=== PATIENT | male | born 1945 | race Caucasian/White ===

== ENCOUNTER → 2020-10-19 09:50 | Outpatient (CLI) | payer MEDICARE, SELFPAY ==
[2020-10-19 11:00] LABS: COVID19 -Nasal RAPID Negative (Negative)
== END ==
PROVIDERS: PCP Family Medicine; Visit Provider Nurse Practitioner
DX: Z20.822 Contact with and (suspected) exposure to COVID-19 (principal)
CPT/HCPCS: 87635; C9803

== ENCOUNTER 2020-10-22 07:07 | Day surgery (SDC) | payer MEDICARE, SELFPAY ==
[2020-10-22] MEDS: PROPARACAINE 0.5% OPHTH SOL 2 DROPS EYE-OP (07:26)
[2020-10-22 07:27] VITALS: BP 175/107; PULSE 120; RESP 19; TEMP 36.6; O2SAT 99; BMI 27.3
[2020-10-22] MEDS: CATARACT EYE COMPOUND (10 DROPS/SYRINGE) 3 DROPS EYE-OP (07:39)
--- NOTE | 2020-10-22 08:36 | PM.PREOP ---
Pre-operative Note Interval Note History & Physical reviewed/Exam performed by Physician: Yes Changes to H&P: No
--- NOTE | 2020-10-22 08:36 | PM.OP.1 ---
Operative Date/Time/Diagnoses Pre-op diagnosis: Nuclear cataract right eye Procedure & Clinicians Procedure: Cataract Surgery Same procedure as scheduled: Yes Surgeon: Alonzo Best Anesthesia Type: MAC +/- and Sedation Operative Notes Procedure in detail: Patient brought to the operating suite. Tetracaine drops placed in the right eye. Patient was prepped and draped in sterile manner. Wire lid speculum was placed in the eye. Betadine drops were placed on the eye. This was irrigated. Lidocaine jelly was placed on the eye. A paracentesis port was created with a side-port blade. 0.1 mL 1% preservative free lidocaine was injected into the anterior chamber. The anterior chamber was deepened with viscoelastic. 2.6 mm keratome was used to create a temporal clear corneal incision. Cystotome and Utrata forceps were used to create continuous tear capsulorrhexis. Balanced salt solution was used to hydro dissect the nucleus. The phacoemulsification handpiece was inserted and the nucleus was removed using the stop and chop technique. The irrigation aspiration handpiece was inserted and the remaining cortex was removed. Anterior chamber was deepened with viscoelastic. An Perry ZCB00 intraocular lens with a power of 18.0 was injected into the capsular bag. Irrigation aspiration handpiece was inserted and the remaining viscoelastic was removed. Incision was hydrated with balanced salt solution and found to be leak free with pressure with Weck-Sumi sponges. 0.1 mL Vigamox injected anterior chamber. 0.3 mL Kenalog 10 mg was injected subconjunctivally. Lid speculum was removed. The patient left the operating room in excellent condition. Complications: none Post-operative Condition: stable Disposition: same day surgery
[2020-10-22] MEDS: TRIAMCINOLONE 50 MG/5 ML VIAL INJ (08:52)
[2020-10-22] MEDS: LIDOCAINE JELLY 2% 5 ML 1 APPLIC TOP (08:52)
[2020-10-22] MEDS: BALANCED SALT IRRIG SOLN NO.2 500 ML, EPINEPHrine 1 MG IRR (08:53)
[2020-10-22] MEDS: PHENYLEPHRINE/LIDOCAINE VIAL (OR) 0.2 ML EYE-OP (08:53)
[2020-10-22] MEDS: MOXIFLOXACIN INJ 5 MG/ML VIAL EYE-OP (08:53)
[2020-10-22] MEDS: CHONDROIDTIN/SOD HYALURONATE 1.05 ML SYRINGE INTRAOCULA (08:54)
[2020-10-22] MEDS: TETRACAINE 0.5% OPHTH DROPS 4 ML 2 DROPS EYE-OP (08:54)
[2020-10-22 09:10] VITALS: BP 152/93; PULSE 66; RESP 16; TEMP 36.6; O2SAT 97
== END 2020-10-22 09:23 | disposition home or self-care (01) ==
PROVIDERS: PCP Family Medicine; Referring Provider Ophthalmology; Visit Provider Ophthalmology
PROC: (CPT 66984; principal; 2020-10-22 08:45)
DX: H25.11 Age-related nuclear cataract, right eye (principal); R42 Dizziness and giddiness; R03.0 Elevated blood-pressure reading, without diagnosis of hypertension
CPT/HCPCS: 66984; J0171; J2250; J3010; J3301

== ENCOUNTER → 2020-11-02 10:09 | Outpatient (CLI) | payer MEDICARE, SELFPAY ==
[2020-11-02 14:42] LABS: COVID19 -Nasal RAPID Negative (Negative)
== END ==
PROVIDERS: PCP Family Medicine; Visit Provider Physician Assistant
DX: Z20.822 Contact with and (suspected) exposure to COVID-19 (principal)
CPT/HCPCS: 87635; C9803

== ENCOUNTER 2020-11-05 08:02 | Day surgery (SDC) | payer MEDICARE, SELFPAY ==
[2020-11-05 08:38] VITALS: BP 177/89; PULSE 81; RESP 18; TEMP 36.6; O2SAT 99; BMI 26.6
[2020-11-05] MEDS: CATARACT EYE COMPOUND (10 DROPS/SYRINGE) 3 DROPS EYE-OP (08:48)
[2020-11-05] MEDS: PROPARACAINE 0.5% OPHTH SOL 2 DROPS EYE-OP (08:48)
--- NOTE | 2020-11-05 09:25 | P.OP_ITS ---
Operative Date/Time/Diagnoses Pre-op diagnosis: Nuclear Cataract Left eye Post-op diagnosis: same Procedure & Clinicians Same procedure as scheduled: Yes Surgeon: Alonzo Best Anesthesia Type: MAC +/- and Sedation Operative Notes Procedure in detail: Patient brought to the operating suite. Tetracaine drops placed in the left eye. Patient was prepped and draped in sterile manner. Wire lid speculum was placed in the eye. Betadine drops were placed on the eye. This was irrigated. Lidocaine jelly was placed on the eye. A paracentesis port was created with a side-port blade. 0.1 mL 1% preservative free lidocaine was injected into the anterior chamber. The anterior chamber was deepened with viscoelastic. 2.6 mm keratome was used to create a temporal clear corneal incision. Cystotome and Utrata forceps were used to create continuous tear capsulorrhexis. Balanced salt solution was used to hydro dissect the nucleus. The phacoemulsification handpiece was inserted and the nucleus was removed using the stop and chop technique. The irrigation aspiration handpiece was inserted and the remaining cortex was removed. Anterior chamber was deepened with viscoe lastic. An Perry ZCB00 intraocular lens with a power of 19.0 was injected into the capsular bag. Irrigation aspiration handpiece was inserted and the remaining viscoelastic was removed. Incision was hydrated with balanced salt solution and found to be leak free with pressure with Weck-Sumi sponges. 0.1 mL Vigamox injected anterior chamber. 0.3 mL Kenalog 10 mg was injected subconjunctivally. Lid speculum was removed. The patient left the operating room in excellent condition. Complications: none Post-operative Condition: stable Disposition: same day surgery
--- NOTE | 2020-11-05 09:25 | PM.PREOP ---
Pre-operative Note Interval Note History & Physical reviewed/Exam performed by Physician: Yes Changes to H&P: No
[2020-11-05] MEDS: MOXIFLOXACIN INJ 5 MG/ML VIAL EYE-OP (09:34)
[2020-11-05] MEDS: LIDOCAINE JELLY 2% 5 ML 1 APPLIC TOP (09:34)
[2020-11-05] MEDS: BALANCED SALT IRRIG SOLN NO.2 500 ML, EPINEPHrine 1 MG IRR (09:34)
[2020-11-05] MEDS: TETRACAINE 0.5% OPHTH DROPS 4 ML 2 DROPS EYE-OP (09:35)
[2020-11-05] MEDS: CHONDROIDTIN/SOD HYALURONATE 1.05 ML SYRINGE INTRAOCULA (09:35)
[2020-11-05] MEDS: PHENYLEPHRINE/LIDOCAINE VIAL (OR) 0.2 ML EYE-OP (09:35)
[2020-11-05] MEDS: TRIAMCINOLONE 50 MG/5 ML VIAL INJ (09:35)
[2020-11-05 09:55] VITALS: BP 130/80; PULSE 73; RESP 16; TEMP 36.8; O2SAT 98
== END 2020-11-05 10:02 | disposition home or self-care (01) ==
PROVIDERS: PCP Family Medicine; Referring Provider Ophthalmology; Visit Provider Ophthalmology
PROC: (CPT 66984; principal; 2020-11-05 09:45)
DX: H25.12 Age-related nuclear cataract, left eye (principal); R42 Dizziness and giddiness
CPT/HCPCS: 66984; J0171; J2250; J3010; J3301

== ENCOUNTER → 2021-03-27 11:21 | Outpatient (CLI) | payer MEDICARE, SELFPAY ==
[2021-03-27 11:58] LABS: COVID19 -Nasal RAPID Negative (Negative)
== END ==
PROVIDERS: PCP Family Medicine; Visit Provider Physician Assistant
DX: Z20.822 Contact with and (suspected) exposure to COVID-19 (principal)
CPT/HCPCS: 87635

== ENCOUNTER 2022-07-05 09:21 | Emergency (ER) | payer MEDICARE, SELFPAY ==
[2022-07-05] VITALS (7 sets, daily range): BP systolic 135–143; BP diastolic 74–91; PULSE 65–106; RESP 16–19; TEMP 36.9; O2SAT 93–97; BMI 25.8
--- NOTE | 2022-07-05 09:42 | ED.BACK ---
HPI - Back Pain/Injury General Chief Complaint: Back Pain/Injury Stated Complaint: hip and leg pain,difficulty sleeping x7 days Time Seen by Provider: 07/05/22 09:25 History of Present Illness HPI Narrative: 76-year-old male nonsmoker with noncontributory medical history presents with his in the chief complaint of bilateral hip and lower extremity pain over the course of the past week. He denies any trauma or injury. He is had no fever, chills nor nausea or vomiting. He states that he feels pain primarily at night and when he 1st wakes up in both of his hips and it radiates down his anterior lateral thighs even into his legs. He denies any loss of control of bowel or bladder. He denies any lower extremity weakness, numbness or tingling. Denies any heavy lifting, bending twisting or other. He denies obvious provocation or palliation. He states that moving his hips does not seem to make it worse. He states he frequently gets up once or twice in the night to urinate but over the past night or 2 he is done it every hour or so. He was recently seen by his primary care provider because he had been having some fullness in his upper abdomen after eating and there was concern about his pancreas. He reports lab work having been done and is scheduled for a CT on Wednesday as ordered by the [facility]. Fortunately, however he is having very little in the way of abdominal pain at this time and those symptoms seemed to have improved. Related Data Previous Rx's Medication Instructions Recorded amoxicillin 875 mg-potassium 1 tab PO Q12H #20 tabs 07/05/22 clavulanate 125 mg tablet gabapentin 300 mg capsule 300 mg PO BEDTIME #14 caps 07/05/22 hydrocodone 5 mg-acetaminophen 325 1 tab PO Q4-6H PRN pain #10 tabs 07/05/22 mg tablet methylprednisolone 4 mg tablets in See Rx Instructions PO .COMPLEX 07/05/22 a dose pack (Medrol (Zacarias)) #21 ea ondansetron 4 mg disintegrating 4 mg PO TID-QID PRN nausea and 07/05/22 tablet vomiting #10 tabs Allergies Allergy/AdvReac Type Severity Reaction Status Date / Time meperidine Allergy Unknown Nausea Verified 03/27/21 11:26 Review of Systems Review of Systems Narrative: GENERAL: See HPI HEENT: Denies sinus pain, ear pain, sore throat, difficulty swallowing, dizziness. RESPIRATORY: Denies dyspnea, cough, wheezing, hemoptysis, sputum. CARDIOVASCULAR: Denies chest pain, palpitations, orthopnea, edema, GASTROINTESTINAL: See HPI : Denies dysuria, frequency, incontinence, hematuria, urinary retention. MUSCULOSKELETAL: See HPI SKIN: Denies rash, skin lesions, or other NEUROLOGIC: See HPI PSYCHIATRIC: No concerning psychosocial issues. 12 point review of systems is negative except for those stated above Patient History Social History household members: spouse Smoking Status: Never smoker alcohol intake: current Smoking Status: Never smoker alcohol intake frequency: 0-2 drinks per day Substance Use Type: does not use Exam Narrative Exam Narrative: GENERAL: [76] year old patient appears stated age. Well-developed patient, in mild distress. HEAD: Atraumatic. Normocephalic. EYES: Pupils equal round and reactive. Extraocular motions intact. No scleral icterus. No injection or drainage. ENT: Nose without bleeding, purulent drainage. Throat without erythema, tonsillar hypertrophy or exudate. Airway patent. NECK: Trachea midline. Non tender CARDIOVASCULAR: Regular rate and rhythm without murmurs, gallops, or rubs. RESPIRATORY: Clear to auscultation. Breath sounds equal bilaterally. No wheezes, rales, or rhonchi. GASTROINTESTINAL: Abdomen soft, non-tender, nondistended. EXTREMITIES: No edema or joint tenderness. BACK: Nontender without deformity or crepitance. No flank tenderness. NEURO: AOx3. No lower extremity weakness, decreased sensation, patellar reflexes intact bilaterally SKIN: No rash or erythema of visible areas Initial Vital Signs Initial Vital Signs: Vital Signs Pulse Rate 98 H 07/05/22 09:30 Blood Pressure 135/74 07/05/22 09:30 Pulse Oximetry 93 07/05/22 09:30 Course Orders Ordered: ED Orders 07/05/22 09:54 C-Reactive Protein Quant Stat Complete Blood Count AUTO DIFF Stat Comprehensive Metabolic Panel Stat Lipase Stat Magnesium Stat PSA [Prostate Specific Antigen] Stat 07/05/22 11:10 Urine Microscopic Stat 07/05/22 11:20 CT abdomen pelvis w con Stat Discontinued Medications Sodium Chloride (Normal Saline 0.9%) 1,000 mls @ 1,000 mls/hr IV BOLUS ONE Stop: 07/05/22 10:40 Last Infusion: 07/05/22 11:05 Dose: 0 mls/hr Documented By: Admin: 07/05/22 09:59 Dose: 1,000 mls/hr Documented By: DIEGO Vital Signs Vital signs: Vital Signs - 8 hr 07/05/22 09:32 07/05/22 09:30 07/05/22 09:30 Temperature 98.4 F Pulse Rate 100 H 98 H Respiratory Rate 16 Blood Pressure 135/74 135/74 Pulse Oximetry 96 93 Oxygen Delivery Method Room Air 07/05/22 10:00 07/05/22 10:30 07/05/22 11:00 Temperature Pulse Rate 89 106 H 86 Respiratory Rate Blood Pressure Pulse Oximetry 94 96 97 Oxygen Delivery Method 07/05/22 11:07 07/05/22 11:07 07/05/22 13:15 Temperature Pulse Rate 82 65 Respiratory Rate 19 Blood Pressure 143/91 H Pulse Oximetry 97 Oxygen Delivery Method MDM - Back Pain/Injury Lab Data Result diagrams: 07/05/22 09:54 07/05/22 09:54 Labs: Lab Results 07/05/22 07/05/22 07/05/22 Range/Units 09:54 09:54 11:10 WBC 6.9 (4.5-11.0) X10^3/uL RBC 4.59 (4.5-5.9) X10^6/uL Hgb 13.1 L (13.5-17.5) g/dL Hct 39.6 L (41-53) % MCV 86.3 (80-100) fL MCH 28.6 (26-34) PG MCHC 33.1 (30-36) % RDW 14.2 (11.6-14.8) % Plt Count 330 (150-400) X10^3/uL Neut % (Auto) 68.1 (50-75) % Lymph % (Auto) 14.7 L (25-40) % [place] % (Auto) 9.7 (3-14) % Eos % (Auto) 6.4 H (2-4) % Baso % (Auto) 1.1 (0-2) % Neut # (Auto) 4700 (0124-9660) /uL Lymph # (Auto) 1000 L (3751-0541) /uL [place] # (Auto) 700 (0-900) /uL Eos # (Auto) 400 (0-450) /uL Baso # (Auto) 100 (0-100) /uL Sodium 137 (137-145) mmol/L Potassium 3.9 (3.4-5.1) mmol/L Chloride 102 (98-107) mmol/L Carbon Dioxide 25 (22-32) mmol/L BUN 19 (9-20) mg/dL Creatinine 0.85 (0.66-1.25) mg/dL Estimated GFR > 60 (>60) mL/min BUN/Creatinine Ratio 22.4 H (6-22) Glucose 125 H (80-110) mg/dL Calcium 9.3 (8.4-10.2) mg/dL Magnesium 1.8 (1.6-2.3) mg/dL Total Bilirubin 0.9 (0.2-1.3) mg/dL AST 119 H (17-59) IU/L ALT 183 H (<50) IU/L Alkaline Phosphatase 477 H (38-126) U/L C-Reactive Protein 2.7 H (<1.0) mg/dL Total Protein 7.3 (6.3-8.2) g/dL Albumin 3.4 L (3.5-5.0) g/dL Globulin 3.9 (1.7-4.1) g/dL Albumin/Globulin Ratio 0.9 L (1.0-2.8) Lipase 76 (23-300) U/L Prostate Specific Ag 70.2 H (0.10-4.00) ng/mL Urine RBC 0-1/hpf (0-5/HPF) Urine WBC 0-1/hpf (0-5/HPF) Ur Squamous Epith Cells None seen (0-5/HPF) Urine Bacteria None seen (None) Ur Culture Indicated? Cult not indicated Urine Dip Bedside Urine Glucose Negative Bedside Urine Bilirubin - Negative Bedside Urine Ketone - Negative Urine Specific [place] 1.015 Bedside Urine Occult Blood - Negative Bedside Urine pH 6.0 Bedside Urine Protein +/- 15 Bedside Urine Urobilinogen - Negative Bedside Urine Nitrite - Negative Bedside Urine Leukocytes - Negative Esterase Discharge Plan Departure Patient Disposition: Home Clinical Impression: Diverticulitis, Radiculopathy Instructions: DI for Diverticulitis Activity Restrictions/Additional Instructions: *You have been diagnosed with [diverticulitis] * As we discussed your history and physical exam as well as labs and imaging are very reassuring. There is no evidence of any severe diagnoses that would require a specific or immediate intervention. *What to do: *Please continue to take your regular medications as directed. [x ] New medication prescriptions sent to your pharmacy: [[facility] *Please follow up with your primary care provider in 2-3 days, call for an appointment. Let them know you were seen in the Emergency Department and that we ask that you be seen in follow up. We will electronically transmit a record of today's note if your PCP is in our system *Please consider a clear liquid diet for the next 24-48 hours and then slowly advance to regular as tolerated. Also, try to avoid alcohol, nicotine, caffeine, spicy, acidic or fatty foods as this may worsen your symptoms *If you do not have a primary care provider please contact the [facility] Resource line at [phone]. They will ask some questions about your medical history and help get you set up with a doctor in the community. *Return to Emergency Department if you should have any new, worsening or concerning symptoms, such as [fever greater than 101 F, shaking chills, worsening pain, persistent vomiting or other bothersome symptoms] Prescriptions: New hydrocodone-acetaminophen 5-325 mg tablet 1 tab PO Q4-6H PRN (Reason: pain) Qty: 10 0RF gabapentin 300 mg capsule 300 mg PO BEDTIME Qty: 14 0RF methylprednisolone [Medrol (Zacarias)] 4 mg tablets,dose pack See Rx Instructions .ROUTE .COMPLEX Qty: 21 0RF Rx Instructions: orally per package directions ondansetron 4 mg tablet,disintegrating 4 mg PO TID-QID PRN (Reason: nausea and vomiting) Qty: 10 0RF amoxicillin-pot clavulanate 875-125 mg tablet 1 tab PO Q12H Qty: 20 0RF Referrals: Mariya Morales MD [Primary Care Provider] - Visit Report Forms: Patient Portal/API
[2022-07-05] MEDS: SODIUM CHLORIDE 0.9% 1,000 ML 1000 ML IV (09:59)
[2022-07-05 11:07] LABS: Add Manual Diff / Slide Review NO; Basophils Absolute Auto 100 /uL (0-100); Basophils Percent Auto 1.1 % (0-2); Eosinophils Absolute Auto 400 /uL (0-450); Eosinophils Percent Auto 6.4 % (2-4); Hematocrit 39.6 % (41-53); Hemoglobin 13.1 g/dL (13.5-17.5); Lymphocytes Absolute Auto 1000 /uL (1100-4500); Lymphocytes Percent Auto 14.7 % (25-40); Mean Corpuscular HGB Conc 33.1 % (30-36); Mean Corpuscular Hemoglobin 28.6 PG (26-34); Mean Corpuscular Volume 86.3 fL (80-100); Monocytes Absolute Auto 700 /uL (0-900); Monocytes Percent Auto 9.7 % (3-14); Neutrophils Absolute Auto 4700 /uL (1500-7000); Neutrophils Percent Auto 68.1 % (50-75); Platelet Count 330 X10^3/uL (150-400); Red Blood Cell Count 4.59 X10^6/uL (4.5-5.9); Red Cell Distribution Width 14.2 % (11.6-14.8); White Blood Cell Count 6.9 X10^3/uL (4.5-11.0)
[2022-07-05 11:14] LABS: Alanine Aminotransferase 183 IU/L (<50); Albumin 3.4 g/dL (3.5-5.0); Albumin Globulin Ratio 0.9 (1.0-2.8); Alkaline Phosphatase 477 U/L (38-126); Aspartate Aminotransferase 119 IU/L (17-59); BUN Creatinine Ratio 22.4 (6-22); Bilirubin Total 0.9 mg/dL (0.2-1.3); Blood Urea Nitrogen 19 mg/dL (9-20); C-Reactive Protein Quant 2.7 mg/dL (<1.0); Calcium 9.3 mg/dL (8.4-10.2); Carbon Dioxide 25 mmol/L (22-32); Chloride 102 mmol/L (98-107); Estimated Glomerular Filt Rate > 60 mL/min (>60); Globulin 3.9 g/dL (1.7-4.1); Glucose 125 mg/dL (80-110); HEMOLYSIS < 15 (0-50); Lipase 76 U/L (23-300); Magnesium 1.8 mg/dL (1.6-2.3); Potassium 3.9 mmol/L (3.4-5.1); Sodium 137 mmol/L (137-145); Total Protein 7.3 g/dL (6.3-8.2)
--- NOTE | 2022-07-05 11:20 | DI.CT.S_ITS ---
PROCEDURE: CT ABDOMEN PELVIS W CON INDICATIONS: abdominal pain, hip pain, elevated LFTs TECHNIQUE: After the administration of intravenous contrast, axial sections acquired from the lung bases to the pubic symphysis. Coronal and sagittal reformats were performed. For radiation dose reduction, the following was used: automated exposure control, adjustment of mA and/or kV according to patient size. COMPARISON: None. FINDINGS: Lower thorax: The lung bases are clear. Heart size normal. No hiatal hernia. Liver: Normal in size and attenuation. No contour deformity present. Biliary system: No calcified cholelithiasis or pericholecystic inflammation. No intra or extrahepatic bile duct dilatation. Pancreas: Unremarkable without mass or inflammation evident. Spleen: Normal in size and density. Adrenals: Normal morphology and density. Reproductive system: Prostatic hypertrophy elevates the bladder floor. Urinary system: Bilateral cortical and peripelvic cysts measure up to 1.5 cm. No hydronephrosis hydroureter. Gastrointestinal system: Multiple diverticula arise from the colon throughout its course. Mild pericolonic inflammatory change noted in the proximal sigmoid. No free air or organized abscess present. Appendix: Normal appendix identified. No evidence of appendicitis. Peritoneal spaces: No mesenteric or retroperitoneal adenopathy. No free air. No free fluid. Vasculature: Aortic atherosclerotic vascular calcification noted without evidence of aneurysm. Abdominal wall: Right inguinal hernia(s) contain fat without bowel involvement. Musculoskeletal: Normal bone mineralization. Degenerative disc disease and arthropathy noted in lower lumbar spine. No acute fractures. IMPRESSION: 1. Mild sigmoid diverticulitis without abscess or free air. Advanced diverticulosis involves the entire colon. No obstruction or perforation. 2. Additional chronic findings as above Approved by: Jarrell Reeves M.D. on 07/05/2022 at 11:31
[2022-07-05 11:41] LABS: Prostate Specific Antigen 70.2 ng/mL (0.10-4.00)
[2022-07-05 11:56] LABS: Bacteria Urine None Seen; Culture Indicated Urine Cult Not Indicated; RBC Urine 0-1/HPF (0-5/HPF); Squamous Epithelial Cell Urine None Seen (0-5/HPF); WBC Urine 0-1/HPF (0-5/HPF)
== END 2022-07-05 13:43 | disposition home or self-care (01) ==
PROVIDERS: Emergency Provider Emergency Medicine; PCP Family Medicine
DX: K57.92 Diverticulitis of intestine, part unspecified, without perforation or abscess without bleeding (principal); M54.10 Radiculopathy, site unspecified; M25.552 Pain in left hip; M25.551 Pain in right hip
CPT/HCPCS: 36415; 74177; 80053; 81003; 81015; 83690; 83735; 84153; 85025; 86140; 99284; Q9967

== ENCOUNTER → 2022-09-16 13:10 | Outpatient (CLI) | payer MEDICARE, SELFPAY ==
[2022-09-16 13:49] LABS: Estimated Glomerular Filt Rate > 60 mL/min (>60)
== END ==
PROVIDERS: Radiology Diagnostic Radiology; PCP Family Medicine; Referring Provider Urology; Visit Provider Urology
DX: C61 Malignant neoplasm of prostate (principal)
CPT/HCPCS: 36415; 82565

== ENCOUNTER → 2022-09-17 07:32 | Outpatient (CLI) | payer MEDICARE, SELFPAY ==
--- NOTE | 2022-09-17 07:34 | DI.NM.S_ITS ---
PROCEDURE: NM BONE SCAN WHOLE BODY RADIOPHARMACEUTICAL: 21 mCi Tc-99m MDP IV. INDICATIONS: Malignant neoplasm of prostate TECHNIQUE: Delayed whole-body scintigrams were obtained approximately 3-4 hours after intravenous injection of radiotracer. Anterior and posterior views were acquired from vertex to feet. Additional left and right oblique views of the pelvis were obtained. COMPARISON: None. FINDINGS: Degenerative uptake of radiotracer at the acromioclavicular and glenohumeral joints, bilateral lower wrist and metacarpophalangeal joints, knee joints, ankle joints, and mid feet. No evidence of metastatic disease. IMPRESSION: 1. Multifocal osteoarthritis. 2. No evidence of metastatic disease. Dictated by: Lazaro Cardona M.D. on 09/17/2022 at 11:57 Transcribed by: LENA on 09/17/2022 at 11:58 Approved by: Lazaro Cardona M.D. on 09/17/2022 at 15:00
--- NOTE | 2022-09-17 07:35 | DI.CT.S_ITS ---
PROCEDURE: CT CHEST W CON INDICATIONS: Malignant neoplasm of prostate TECHNIQUE: After the administration of intravenous contrast, 5 mm thick sections acquired from the pulmonary apices to the posterior costophrenic angles. 1 mm axial lung, 5 mm thick coronal and sagittal reformats and 7 mm axial MIP were acquired. For radiation dose reduction, the following was used: automated exposure control, adjustment of mA and/or kV according to patient size. COMPARISON: [facility], CR, XR CHEST 2 VIEWS, 06/30/2022, 17:24. [facility], CT, CT ABDOMEN PELVIS W CON, 07/05/2022, 11:24. FINDINGS: Image quality: Adequate Lungs and pleura: 6 millimeter subpleural left lower lobe nodule (3/250), unchanged. 5 millimeter right middle lobe nodule along the fissure, likely an intrapulmonary lymph node. A few scattered calcified granulomata are present. No consolidation or pleural effusion. Mediastinum: No pericardial effusion. Mild right hilar adenopathy for example a 1.1 centimeter lymph node (2/28). No mediastinal adenopathy by size criteria. Thoracic aorta and central pulmonary arteries are normal in size. Esophagus is normal in caliber. Bones and chest wall: Multilevel degenerative change of the visualized spine. No axillary or supraclavicular adenopathy by size criteria. Abdomen: Colonic diverticulosis is present. IMPRESSION: 1. Mild nonspecific right hilar adenopathy. No mediastinal adenopathy identified. Attention on follow-up is recommended. 2. No significant change in a 6 millimeter subpleural left lower lobe pulmonary nodule. Attention on follow-up is recommended. Dictated by: Reginaldo Medina M.D. on 09/17/2022 at 10:26 Approved by: Reginaldo Medina M.D. on 09/17/2022 at 10:39
== END ==
PROVIDERS: PCP Family Medicine; Referring Provider Urology; Visit Provider Urology
DX: C61 Malignant neoplasm of prostate (principal); M15.9 Polyosteoarthritis, unspecified
CPT/HCPCS: 71260; 78306; A9503; Q9967

== ENCOUNTER → 2022-10-10 09:32 | Outpatient (CLI) | payer MEDICARE, SELFPAY ==
--- NOTE | 2022-10-10 09:33 | DI.MRI.S_ITS ---
PROCEDURE: MR PELIS WO/W CON INDICATIONS: Malignant neoplasm of prostate TECHNIQUE: Coronal HASTE, axial T1 FSE with fat saturation, 3-plane nonbreath-hold T2 FSE. After the administration of contrast, dynamic axial, delayed axial and coronal VIBE or 2-D FLASH with fat saturation through the pelvis. Optional diffusion weighted imaging and ADC may be performed. COMPARISON: CT 07/05/2022. FINDINGS: Image quality: Diffusion weighted and dynamic contrast enhanced images are diagnostic. Prostate: Gland size is 3.7 x 4.5 x 4.6 cm; ellipsoid gland volume is 40 mL. The prostate demonstrates a homogeneous T2 hypointense signal, which may indicate posttreatment change or diffuse infiltration of malignancy. Lesion 1: Location: Left lateral to anterior peripheral zone, apex Size: 1.4 x 3.0 cm T2 signal: T2 hypointense DWI: Markedly hyperintense ADC: Markedly hypointense Enhancement: Positive Extracapsular extension: Positive, along the posterior margin (series 4/image 17) and anterior margin. PI-RADS score: 5 Lesion 2: Location: Right posterior to medial peripheral zone, apex (23/65). Size: 1.8 x 1.4 cm T2 signal: Hypointense DWI: Markedly hyperintense ADC: Markedly hypointense Enhancement: Positive Extracapsular extension: Broad-based capsular contact PI-RADS score: 5 Genitourinary system: Bladder wall thickness is normal. Distal ureters are non distended. Bowel and peritoneum: No pathologic free pelvic fluid. Inferior colon and small bowel loops are normal in caliber. Colonic diverticulosis without evidence of diverticulitis. Nodes and vessels: There is a left common iliac chain node measuring 5 mm in short access, with irregular margins concerning for jaiden disease (4/2). Soft tissues: No inguinal hernias. Bones: Marrow demonstrates normal overall signal, without lesions to suggest metastases. IMPRESSION: Diffuse T2 hypointense signal throughout the prostate, which may indicate posttreatment change or less likely diffuse malignancy. There are 2 regions of focal restricted diffusion in the apex, likely representing primary malignancy. Suspicious left external iliac chain node. No aggressive osseous abnormality. Dictated by: Favian Hinson M.D. on 10/12/2022 at 8:17 Approved by: Favian Hinson M.D. on 10/12/2022 at 9:10
== END ==
PROVIDERS: PCP Family Medicine; Referring Provider Urology; Visit Provider Urology
DX: C61 Malignant neoplasm of prostate (principal); K57.90 Diverticulosis of intestine, part unspecified, without perforation or abscess without bleeding
CPT/HCPCS: 72197; A9579

== ENCOUNTER → 2023-04-20 08:50 | Outpatient (CLI) | payer MEDICARE, SELFPAY ==
--- NOTE | 2023-04-20 | DI.MRI.S_ITS ---
PROCEDURE: MR PELVIC PROSTATE PROTOCOL INDICATIONS: Malignant neoplasm of prostate TECHNIQUE: Coronal HASTE, axial T1 FSE with fat saturation, 3-plane nonbreath-hold T2 FSE. After the administration of contrast, dynamic axial, delayed axial and coronal VIBE or 2-D FLASH with fat saturation through the pelvis. Optional diffusion weighted imaging and ADC may be performed. COMPARISON: [facility], MR, MR PELVIS WO/W CON, 10/10/2022, 9:56. FINDINGS: Image quality: Diffusion weighted and dynamic contrast enhanced images are diagnostic. Prostate: Gland size is 5.1 x 3.5 x 4.4 cm; ellipsoid gland volume is 41 mL. There is similar diffuse T2 hypointensity of the prostate gland. Lesion #1: Size: 3.0 x 1.2 cm previously 3.0 x 1.4 cm no significant change Location: Left peripheral zone, posterolateral-anterior, gland apex T2 signal: Hypointense DWI/ADC signal: Hypointense on ADC images with corresponding DWI hyperintensity DCE: Positive RANDI: Positive Seminal vesicle invasion: Absent PI-RADS: T2 signal - 5; ADC - 5; DCE - positive; Overall score: PI-RADS 5. Lesion #2: Size: 2.1 x 1.2 cm previously 1.8 x 1.4 cm no significant change Location: Right posteromedial-posterolateral peripheral zone, gland apex T2 signal: Hypointense DWI/ADC signal: Hypointense on ADC images with corresponding DWI hyperintensity DCE: Positive RANDI: Possible extracapsular extension posteriorly (series 4, image 16) Seminal vesicle invasion: Absent PI-RADS: T2 signal - 5; ADC - 5; DCE - positive; Overall score: PI-RADS 5. Genitourinary system: Bladder wall thickness is normal. Distal ureters are non distended. Bowel and peritoneum: No pathologic free pelvic fluid. Inferior colon and small bowel loops are normal in caliber. Colonic diverticulosis without MR evidence of acute diverticulitis. Nodes and vessels: No pelvic or inguinal adenopathy by size criteria. Previously described heterogeneous 5 mm left external iliac chain lymph node is not significantly changed (series 4, image 1). Iliac vessels are normal in caliber. Bones: Marrow demonstrates unremarkable overall signal, without lesions to suggest metastases. IMPRESSION: 1. Similar size of previously described PI-RADS category 5 lesions. 2. No significant interval change in the previously indexed left external iliac chain lymph node, nonenlarged by size criteria but heterogeneous in appearance, indeterminate for jaiden metastatic disease. Dictated by: Reginaldo Medina M.D. on 04/20/2023 at 10:45 Approved by: Reginaldo Medina M.D. on 04/20/2023 at 11:10
--- NOTE | 2023-04-20 11:24 | DI.CT.S_ITS ---
PROCEDURE: CT ABDOMEN PELVIS W CON INDICATIONS: Malignant neoplasm of prostate TECHNIQUE: After the administration of oral and IV contrast, axial sections were acquired from the lung bases to the pubic symphysis. Coronal and sagittal reformats were performed. For radiation dose reduction, the following was used: automated exposure control, adjustment of mA and/or kV according to patient size. COMPARISON: [facility], CT, CT ABDOMEN PELVIS W CON, 07/05/2022, 11:24. FINDINGS: Image quality: Good Lower chest: Basal scarring/atelectasis. Unchanged nodule in the subpleural region of the left lower lobe. Increased conspicuity of a nodule in the subpleural region of the right lower lobe. This is on image 3/7 measuring 6 millimeters. Solid organs: The liver appears unremarkable. Gallbladder is unremarkable. No pathologic dilation of the biliary tree or pancreatic duct. Unchanged small capsular hypodensity of the spleen, unchanged. No adrenal nodules. No hydronephrosis. There are renal cysts. Vessels and lymph nodes: The main portal vein is patent. Atherosclerotic disease. Prominent left external iliac node as discussed previously. No pathologic retroperitoneal lymph nodes enlarged by size criteria. There is also an unchanged prominent right retrocrural lymph node. No abdominal aortic aneurysm. Bowel and peritoneum: Chronic diverticular disease and wall thickening of the distal colon, please correlate with colonoscopy results. No pathologic ascites or drainable abscess. Body wall: Fat containing periumbilical hernia. Fat containing right inguinal hernia. Pelvis: Heterogeneous prostate enhancement compatible with malignancy. This involves the left half of the gland, increased in conspicuity compared to prior CT, but better evaluated on recent MRI. Bladder is unremarkable. Bones: Scattered degenerative changes. Bone scan would be more sensitive for osseous disease. IMPRESSION: Prostate malignancy, primary extent of disease better characterized on MRI. A prominent left external iliac node is again seen. Increased conspicuity of a subpleural pulmonary nodule in the right lower lobe. Other findings as above. Please consider PSMA PET for followup and further evaluation. Dictated by: Jose Painting M.D. on 04/20/2023 at 15:37 Approved by: Jose Painting M.D. on 04/20/2023 at 15:46
== END ==
PROVIDERS: PCP Family Medicine; Referring Provider Family Medicine; Visit Provider Family Medicine
DX: C61 Malignant neoplasm of prostate (principal); K57.30 Diverticulosis of large intestine without perforation or abscess without bleeding; K42.9 Umbilical hernia without obstruction or gangrene; K40.90 Unilateral inguinal hernia, without obstruction or gangrene, not specified as recurrent; R59.0 Localized enlarged lymph nodes; R91.1 Solitary pulmonary nodule
CPT/HCPCS: 36415; 72197; 74177; 82565

== ENCOUNTER → 2023-04-20 10:11 | Outpatient (CLI) | payer MEDICARE, SELFPAY ==
[2023-04-20 10:38] LABS: Estimated Glomerular Filt Rate > 60 mL/min (>60)
== END ==
PROVIDERS: PCP Family Medicine; Referring Provider Family Medicine; Visit Provider Family Medicine
DX: C61 Malignant neoplasm of prostate (principal)
CPT/HCPCS: 36415; 82565

== ENCOUNTER → 2023-09-06 09:20 | Outpatient (CLI) | payer MEDICARE, SELFPAY ==
--- NOTE | 2023-09-06 09:48 | DI.MRI.S_ITS ---
PROCEDURE: MR KNEE LT WO CON INDICATIONS: Unilateral primary osteoarthritis, left knee TECHNIQUE: Noncontrast sagittal PD fast spin echo and T2 fast spin echo with fat saturation, sagittal 3-D FLASH with fat saturation; coronal T1 spin echo and PD fast spin echo with fat saturation, and axial PD fast spin echo with fat saturation through the knee. COMPARISON: None. FINDINGS: Image quality: Excellent. Menisci: Peripheral displacement of medial meniscus bowing medial collateral ligament is seen. Complex tear involving posterior horn of medial meniscus is seen extending to both superior and inferior articulating surfaces. The lateral meniscus is intact. The meniscal root ligaments appear intact. Cruciate ligaments: The anterior cruciate ligament is thickened. The posterior cruciate ligament is intact. Medial structures: The medial collateral ligament appears thickened with adjacent soft tissue edema and swelling. Visualized portions of the pes anserinus tendons appear normal. No abnormal bursal fluid. Lateral structures: The lateral collateral ligament, long and short heads of the biceps femoris tendon appear intact. The popliteus tendon appears normal. Iliotibial band appears normal. Anterior structures: Distal quadriceps tendinosis at its superior patellar insertion is seen. Proximal patellar tendinosis is also seen. There is fluid distending prepatellar bursa with adjacent soft tissue edema concerning for bursitis. Patellar alignment is normal. No femoral trochlear dysplasia or ventral trochlear prominence. No edema in the infrapatellar fat pad. Bones and cartilage: Moderate tricompartmental osteoarthritis and chondromalacia is seen most notably involving medial femoral tibial compartment with osteochondral injury involving weight-bearing portion of medial femoral condyle and surrounding edema. No fracture or dislocation. Joint space: There is moderate knee joint fluid. No gross loose bodies. No Barrett's cyst. Normal appearing synovial plicae are incidentally noted. IMPRESSION: 1. Complex tear involving posterior horn of medial meniscus extending to both superior and inferior articulating surfaces. The lateral meniscus is intact. 2. Low-grade ACL sprain. No ACL rupture. The PCL is intact. 3. Low to moderate grade MCL sprain/partial-thickness tear. 4. Distal quadriceps tendinosis and proximal patellar tendinosis. Fluid distending prepatellar bursa suggestive of bursitis. 5. Moderate tricompartmental osteoarthritis and chondromalacia most notably in medial femoral tibial compartment with osteochondral injury involving weight-bearing portion of medial femoral condyle and surrounding edema. No fracture or dislocation. 6. Moderate joint effusion, no gross loose bodies. Dictated by: Zane Augustin M.D. on 09/06/2023 at 14:29 Approved by: Zane Auugstin M.D. on 09/06/2023 at 14:42
== END ==
LOC: MRI 09:20
PROVIDERS: PCP Family Medicine; Referring Provider Orthopaedic Surgery Adult Reconstructive Orthopaedic Surgery; Visit Provider Orthopaedic Surgery Adult Reconstructive Orthopaedic Surgery
DX: S83.232A Complex tear of medial meniscus, current injury, left knee, initial encounter (principal); M17.12 Unilateral primary osteoarthritis, left knee; S83.512A Sprain of anterior cruciate ligament of left knee, initial encounter; S83.412A Sprain of medial collateral ligament of left knee, initial encounter; M94.262 Chondromalacia, left knee; M25.462 Effusion, left knee
CPT/HCPCS: 73721

== ENCOUNTER → 2023-09-10 10:31 | Outpatient (CLI) | payer MEDICARE, SELFPAY ==
[2023-09-10 11:20] LABS: Add Manual Diff / Slide Review NO; Basophils Absolute Auto 100 /uL (0-100); Basophils Percent Auto 1.3 % (0-2); Eosinophils Absolute Auto 200 /uL (0-450); Eosinophils Percent Auto 3.1 % (2-4); Hematocrit 38.3 % (41-53); Hemoglobin 13.1 g/dL (13.5-17.5); Lymphocytes Absolute Auto 1300 /uL (1100-4500); Lymphocytes Percent Auto 20.7 % (25-40); Mean Corpuscular HGB Conc 34.1 % (30-36); Mean Corpuscular Hemoglobin 29.5 PG (26-34); Mean Corpuscular Volume 86.3 fL (80-100); Monocytes Absolute Auto 600 /uL (0-900); Neutrophils Absolute Auto 4100 /uL (1500-7000); Neutrophils Percent Auto 65.9 % (50-75); Platelet Count 210 X10^3/uL (150-400); Red Blood Cell Count 4.44 X10^6/uL (4.5-5.9); Red Cell Distribution Width 14.4 % (11.6-14.8); White Blood Cell Count 6.3 X10^3/uL (4.5-11.0)
[2023-09-10 11:36] LABS: Hemoglobin A1C% w Est Avg Glu 5.2 % (4.0-6.0)
[2023-09-10 11:42] LABS: Albumin 3.8 g/dL (3.5-5.0); BUN Creatinine Ratio 21.2 (6-22); Blood Urea Nitrogen 21 mg/dL (9-20); Calcium 9.2 mg/dL (8.4-10.2); Carbon Dioxide 29 mmol/L (22-32); Chloride 104 mmol/L (98-107); Estimated Glomerular Filt Rate > 60 mL/min (>60); Glucose 89 mg/dL (80-110); HEMOLYSIS < 15 (0-50); Sodium 138 mmol/L (137-145)
[2023-09-10 13:05] LABS: Prostate Specific Antigen 109 ng/mL (0.10-4.00)
[2023-09-10 15:36] LABS: Vitamin D 25 Hydroxy (D3) 33.5 ng/mL (30.0-100.0)
== END ==
PROVIDERS: PCP Family Medicine; Referring Provider Orthopaedic Surgery Adult Reconstructive Orthopaedic Surgery; Visit Provider Orthopaedic Surgery Adult Reconstructive Orthopaedic Surgery
DX: Z01.818 Encounter for other preprocedural examination (principal); E55.9 Vitamin D deficiency, unspecified; R73.9 Hyperglycemia, unspecified; R97.20 Elevated prostate specific antigen [PSA]; R77.0 Abnormality of albumin; Z01.812 Encounter for preprocedural laboratory examination
CPT/HCPCS: 36415; 80048; 82040; 82306; 83036; 84134; 84153; 85025; 93005

== ENCOUNTER → 2023-09-20 15:09 | Outpatient (CLI) | payer MEDICARE, SELFPAY ==
--- NOTE | 2023-09-20 | DI.MRI.S_ITS ---
PROCEDURE: MR PELVIC PROSTATE PROTOCOL INDICATIONS: PROSTATE CANCER TECHNIQUE: Coronal HASTE, axial T1 FSE with fat saturation, 3-plane nonbreath-hold T2 FSE. After the administration of contrast, dynamic axial, delayed axial and coronal VIBE or 2-D FLASH with fat saturation through the pelvis. Diffusion weighted imaging and ADC was performed. COMPARISON: [facility], , MR PELVIC PROSTATE PROTOCOL, 04/20/2023, 9:20. FINDINGS: Image quality: Diffusion weighted and dynamic contrast enhanced images are diagnostic. Prostate: Gland size is 4.6 x 4.0 x 4.2 cm; ellipsoid gland volume is 40 mL. Diffuse T2 hypointense signal throughout the prostate. Area measuring Lesion 1: Location: Left peripheral zone, mid gland to apex, on series 23, image 41 Size: 2.6 by 0.9 cm, previously 3.0 x 1.2 cm. T2W signal: Hypointense. DWI signal: Markedly hyperintense. ADC signal: Markedly hypointense. Enhancement: Yes. Extracapsular extension: No. No neurovascular involvement. PI-RADS score: 5 Lesion 2: Not seen on today's exam. Lesion 3: Seen in retrospect Location: Central peripheral zone, base, on series 23, image 35 Size: 1.8 x 1.5 cm, unchanged. T2W signal: Hypointense. DWI signal: Markedly hyperintense. ADC signal: Markedly hypointense. Enhancement: Yes. Extracapsular extension: No. No neurovascular involvement. PI-RADS score: 5 Genitourinary system: Bladder wall thickness is normal. Distal ureters are non distended. Bowel and peritoneum: No pathologic free pelvic fluid. Inferior colon and small bowel loops are normal in caliber. Colonic diverticulosis without evidence of diverticulitis. Nodes and vessels: No pelvic or inguinal adenopathy by size criteria. Iliac vessels are normal in caliber. Soft tissues: Large right inguinal hernia containing fat. Small left inguinal hernia containing fat. Bones: Marrow demonstrates normal overall signal, without lesions to suggest metastases. IMPRESSION: Similar appearance of the PI-RADS 5 lesion in the left peripheral zone of the apex. Previously described lesion 2 is no longer seen. A newly characterized PI-RADS 5 lesion 3 is unchanged from prior. No pelvic lymphadenopathy by size criteria. No aggressive osseous abnormality. Dictated by: Favian Hinson M.D. on 09/20/2023 at 16:49 Approved by: Favian Hinson M.D. on 09/20/2023 at 16:55
== END ==
PROVIDERS: PCP Family Medicine; Referring Provider Urology; Visit Provider Urology
DX: C61 Malignant neoplasm of prostate (principal); N42.9 Disorder of prostate, unspecified
CPT/HCPCS: 72197

== ENCOUNTER → 2025-08-06 13:40 | Outpatient (CLI) | payer MEDICARE, SELFPAY ==
--- NOTE | 2025-08-06 13:44 | DI.RAD.S_ITS ---
PROCEDURE: XR CERVICAL SPINE 4V OR 5V INDICATIONS: NECK PAIN TECHNIQUE: 5 views of the cervical spine acquired. COMPARISON: None. FINDINGS: Bones: No fractures or dislocations to the C7 level. Normal alignment of the glenoid occipital joint on open mouth odontoid. No lateral subluxation. In degenerated disc osteophyte complexes at C5-6 through C7-T1. Multilevel bony neural foraminal stenosis from C3-4 through C6-7. Soft tissues: No prevertebral soft tissue swelling. IMPRESSION: Moderate to severe spondylosis of the mid inferior cervical spine with multilevel bony neural foraminal stenosis. Dictated by: Greg Jones M.D. on 08/06/2025 at 20:47 Approved by: Greg Jones M.D. on 08/06/2025 at 20:48
== END ==
PROVIDERS: PCP Family Medicine; Referring Provider Family Medicine; Visit Provider Family Medicine
DX: C61 Malignant neoplasm of prostate (principal); M47.22 Other spondylosis with radiculopathy, cervical region; M48.02 Spinal stenosis, cervical region
CPT/HCPCS: 72050